=== PATIENT | female | born 1980 | race Two or more races ===

== ENCOUNTER 2022-03-03 23:41 | Emergency (ER) | payer MEDICAID ==
[~2022-03-03] VITALS: Ht 160 cm; Wt 68.2 kg
[~2022-03-03 23:41] MED LIST: PREN1TAB26 PO; QUET100T PO; QUET25TA PO
[2022-03-04] MEDS ORDERED: LORazepam 1 MG TABLET PO ONE (01:00)
[2022-03-04] MEDS ORDERED: HALOPERIDOL 5 MG TABLET PO ONE (01:00)
[2022-03-04 09:00] VITALS: BP 131/83
== END 2022-03-04 09:19 | disposition home or self-care (01) ==
LOC: EMS 23:44 → EDBD 23:44 → EMS 03-04 09:19
DX: F20.0 Paranoid schizophrenia (principal); F17.210 Nicotine dependence, cigarettes, uncomplicated; Z98.890 Other specified postprocedural states
CPT/HCPCS: 99285; Z7502; Z7610